=== PATIENT | female | born 1965 | race Caucasian/White ===

== ENCOUNTER 2017-04-27 14:31 | Outpatient (CLI) ==
--- NOTE | 2017-04-27 15:00 | DI ---
EXAM: Three views of the left ankle HISTORY: Pain in left ankle. COMPARISON: None FINDINGS: There is no lytic or blastic lesion of the left ankle. The joint spaces maintained. No d isplaced fracture or dislocation is identified. Soft tissues demonstrate no significant soft tissue swelling. Structures in the hind foot are normal. IMPRESSION: No acute abnormality or displaced fracture of the left ankle.
== END 2017-04-27 14:32 | disposition home or self-care (01) ==
LOC: RAD 14:31
PROVIDERS: ATTEND Nurse Practitioner Family
DX: M25.572 Pain in left ankle and joints of left foot (principal); S99.912A Unspecified injury of left ankle, initial encounter

== ENCOUNTER 2017-05-02 13:04 | Outpatient (CLI) ==
[2017-05-02 13:21] LABS: BASOPHILS # (AUTO) 0.1 K/uL (0-0.2); BASOPHILS % (AUTO) 0.8 % (0.0-3.0); EOSINOPHILS # (AUTO) 0.1 K/ul (0.0-0.7); EOSINOPHILS % (AUTO) 1.9 % (0.0-7.0); HEMATOCRIT 43.5 % (37.0-47.0); HEMOGLOBIN 14.8 g/dl (12.0-16.0); IMMATURE GRANULOCYTE % (AUTO) 0.3 % (0.0-5.0); LYMPHOCYTES # (AUTO) 2.5 K/uL (0.60-3.4); LYMPHOCYTES % (AUTO) 39.6 (10.0-50.0); MEAN CORPUSCULAR HEMOGLOBIN 32.8 pg (27.0-31.0); MEAN CORPUSCULAR VOLUME 96.5 fl (81.0-99.0); MONOCYTES # (AUTO) 0.5 K/uL (0.4-2.0); MONOCYTES % (AUTO) 8.6 (0-10); NEUTROPHILS # (AUTO) 3.1 K/ul (2.0-6.9); NEUTROPHILS % (AUTO) 48.8; PLATELET COUNT 489 10^3/uL (140-440); RED BLOOD COUNT 4.51 10^6/ul (4.20-5.40); WHITE BLOOD COUNT 6.27 K/ul (4.6-10.2)
[2017-05-02 13:23] LABS: BILIRUBIN,URINE 1+ (NEGATIVE); KETONES,URINE Negative (NEGATIVE); LEUKOCYTE ESTERASE ,URINE Negative (NEGATIVE); NITRITE,URINE Negative (NEGATIVE); PROTEIN,URINE Trace (NEGATIVE); URINE, BLOOD Negative (NEGATIVE)
[2017-05-02 13:32] LABS: ADD URINE MICROSCOPIC YES
--- NOTE | 2017-05-02 13:33 | DI ---
EXAM: Pelvis one-view HISTORY: Sacral coccygeal disorders, not elsewhere classified COMPARISON: None FINDINGS: The bones are normal. Sacroiliac joints intact. Sacral arcuate lines intact. Hip joints are normal. No focal soft tissue abnormality. IMPERSSION: Normal examination.
[2017-05-02 13:35] LABS: ALBUMIN 4.1 g/dL (3.4-5.0); ALBUMIN/GLOBULIN RATIO 1.03; ANION GAP 16.1; BILIRUBIN,TOTAL 0.37 mg/dL (0.00-1.20); BUN/CREATININE RATIO 13.33; CALCIUM 9.9 mg/dL (8.2-10.2); CREATININE 0.75 mg/dL (0.60-1.30); POTASSIUM 4.1 mmol/L (3.5-5.10); TOTAL PROTEIN 8.1 g/dL (6.4-8.2)
[2017-05-02 13:37] LABS: BACTERIA,URINE TRACE (NOT PRESENT)
--- NOTE | 2017-05-02 13:43 | CT ---
EXAM: CT left ankle without contrast HISTORY: Initial presentation for left ankle injury COMPARISON: Radiograph 04/27/2017 TECHNIQUE: Multiple axial images of the left ankle were obtained without intravenous contrast. Kerry ges were reformatted in the sagittal and coronal planes. FINDINGS: Bone mineralization is normal. No displaced fracture or dislocation identified. There i s oblique sclerosis within the superior posterior aspect of the calcaneus best seen on sagittal imag e 25. Joint spaces are maintained. No erosive changes are seen. Soft are unremarkable. IMPRESSION: 1. No acute fracture or dislocation. 2. Age indeterminate calcaneal stress fracture.
== END 2017-05-02 13:05 | disposition home or self-care (01) ==
LOC: RAD 13:04
PROVIDERS: ATTEND General Practice
DX: M25.572 Pain in left ankle and joints of left foot (principal); M53.3 Sacrococcygeal disorders, not elsewhere classified; Z79.899 Other long term (current) drug therapy
CPT/HCPCS: 36415; 80053; 81001; 85025

== ENCOUNTER 2017-08-02 15:54 | Outpatient (CLI) ==
--- NOTE | 2017-08-02 16:54 | DI ---
EXAM: Lumbar spine radiographs. HISTORY: Low back pain. COMPARISON: None available. TECHNIQUE: 5 views of the lumbar spine. FINDINGS: The normal curvature and alignment are maintained. Vertebral body heights are normal. Th ere is moderate loss of disc height at L4-5 and L5-S1. No fracture or subluxation identified. Sacra l arcuate lines are intact. Soft tissues are unremarkable. Cholecystectomy clips noted. IMPRESSION: Lower lumbar degenerative disc disease.
== END 2017-08-02 15:55 | disposition home or self-care (01) ==
LOC: RAD 15:54
PROVIDERS: ATTEND General Practice
DX: M54.5 Low back pain (principal)

== ENCOUNTER 2017-08-05 12:03 | Outpatient (CLI) ==
--- NOTE | 2017-08-06 10:35 | MRI ---
EXAM: MRI lumbar spine without IV contrast. DATE: 03 August 2017. HISTORY: Right-sided sciatica. TECHNIQUE: Sagittal and axial T1W and T2W sequences of the lumbar spine along with sagittal IR and c oronal T2W sequences were obtained using 1.10 Alyson magnet. No IV contrast. COMPARISON: LS spine series 02 August 2017. FINDINGS: There are five [id number] lumbar vertebra. Twelfth ribs are small. Minor rightward curvature of the lumbar spine is evident. A 1 mm anterior subluxation of L5 relative to S1 is noted. There are questionable L5 pars defects. No other subluxation, acute fracture, osseous malignancy i s demonstrated. Lumbar vertebrae normal in height. Bone marrow signal is overall normal. T2W/T1W b right, 4.4 mm focus in the T12 body and 8.8 mm focus in the L3 body are likely benign hemangiomas. D isc desiccation and mild disc space narrowing are present at L4-5 and L5-S1. The no sacral fracture or stress reaction is apparent. SI joints are unremarkable. Abundant epidural fat at L5-S1 and in t he sacral canal causes significant narrowing of the thecal sac. Conus medullaris terminates at T12-L 1. Visible spinal cord is normal. No retroperitoneal lymphadenopathy, paraspinal mass, or aortic aneurysm is detected in the paraspinal musculature is symmetric bilaterally. Visible portions of the liver, spleen, adrenal glands, and ki dneys reveal no abnormality. CBD is 8.6 mm diameter. No choledocholithiasis or intraluminal CBD mas s detected. Gallbladder is surgically absent. Segmental analysis: T11-12: Normal. T12-L1: Normal. L1-2: Minimal posterior disc bulge does not cause central stenosis or foraminal stenosis. L2-3: Normal. L3-4: Normal. L4-5: Minimal posterior to left foraminal disc bulge causes triangulation of the canal and minor lef t foraminal narrowing. L5-S1: Minor anterior subluxation of L5, small concentric disc bulge, and mild facet arthropathy cau se moderate right and marked left foraminal stenoses. Abundant epidural fat causes marked narrowing o f the thecal sac. IMPRESSIONS: 1. Lumbar spine questionable bilateral L5 pars defects versus facet disease causing minor L5 subluxa tion. 2. Spinal lipomatosis at L5-S1 and the sacral canal. 3. Triangulation of the canal at L4-5. 4. Benign hemangiomas at T12 and L3 vertebra. 5. L5-S1 moderate/marked foraminal stenoses. 6. The 8.6 mm CBD may be normal S/P cholecystectomy.
== END 2017-08-05 12:04 | disposition home or self-care (01) ==
LOC: RAD 12:03
PROVIDERS: ATTEND General Practice
DX: M54.31 Sciatica, right side (principal)

== ENCOUNTER 2017-10-04 11:00 | Outpatient (RCR) ==
--- NOTE | 2017-09-19 14:55 | RS.OPPTEV2 ---
Date of Note: 09/19/17 Visit #: 1 Date of Evaluation: 09/19/17 Payer Source: Medicaid Treatment Diagnosis: Right low back/SI pain, SI joint Dysfunction History of Condition/Mechanism of Injury:: Patient reports right hip/low back pain since this past , when she was sitting in the floor with her grandkids putting [employer] baskets together. Prior Level of Function.....Patient was independent with: ADL's, Self Care, Caregiving, Ambulation/Mobility, Community Integration/Access Functional Limitations: Sleep, ADL's, Lifting, Sitting, Standing, Bending Current Subjective/complaints:: Patient reports pain into the right low back and buttock. Pain goes into the right thigh and almost to the knee. States right LE feels hot and itchy. Her hips hurt at night. She sleeps on her side and has to change positions frequently. States right low back and buttock pain is pretty well constant. She tries to walk a little to keep everything loose. Standing in one place or sitting causes increased pain. Treatment Side (optional): Right Medical History Surgical History: Cholecystectomy, Hysterectomy, (2) Hx Home Medications: Effexor, Ibuprofen, Cammal Patient's Goals: Her goal is to get relief of right low back and LE pain. Pain Assessment - Pain Description Pain Location: right lower back/buttock Current Pain Intensity: 6/10 Worst Pain Intensity: 9/10 Functional Outcome Measure Oswestry LBP: 62 - G Codes & Severity Modifier G Codes & Modifier: NA Source of G Code score: NA Observation - Observation Posture: Forward Head, Rounded Shoulders, Decreased Lumbar Lordosis Handedness: Left Gait - Gait Pattern Gait Comments: Patient ambulates independently, without a gait deviation. She demonstrates slight flexed forward posture at the hips and decreased stance phase on the right LE. - ROM Lumbar Flexion: Hand reach to patellae Sidebending to Left: Reach to Mid-thigh Sidebending to Right: Reach to Mid-thigh Lumbar Spine ROM Limitations: Soft Tissue Tightness Comments: Demonstrates hypomobility of the lumbar spine with attempts at lumbar flexion. - Strength Comments: Right hip flexion 4-/5, all else of right hip 4/5. All MMT of right hip increases pain at right SI region. Left LE generally 4 to 4+/5. Trunk strength 4/5. - Special Tests MORIAH Test: Positive Left, Positive Right SLR Test: Negative Left, Negative Right Seated Dural Stretch Test: Negative Left, Negative Right SI Joint Compression: Positive Palpation Comments:: Tenderness reported over the right SI joint. Slight tenderness over the left SI joint and sacrum with central pressures. Reports tenderness over bilateral Greater trochanters. Right lumbar paraspinals demonstrates min to moderate increased tone. Sensation - Sensation Comments: Sensation intact to light touch and deep pressure. Additional Comments: Additional Comments: right SLR to 35 degrees in supine. left SLR to 45-50 degrees. Demonstrates equal leg length in supine and long sitting. - Treatment Modality: Ultrasound Parameters/Method Applied: 1.5 w/cm2 continuous X 10 mins to right SI/lumbar region. Patient Position: Left Sidelying Interventions - Exercise/Activities/Manual Therapy Exercises/Activities: Patient instructed in gentle isometric hip flexion and adduction to start at home. Manual Therapy: NA HOME EXERCISE PROGRAM: gentle isometric hip flexion and adduction - Charges Total Direct Minutes: 50 mins Total Treatment Time: 50 mins Procedures billed for this date of service:: VASILE Kramer, Ultrasound Assessment Assessment: Patient presents to therapy with a diagnosis of right SI joint dysfunction, foraminal stenosis of lumbosacral spine. She reports pain in right low back and buttock that is nearly constant. Reports increased pain into the right LE with prolonged standing and sitting. Lumbar AROM is guarded and limited by pain. Reports sleep being disrupted by hip pain. She reports tenderness over the right SI joint and with mobilization of the sacrum. Demonstrates positive MORIAH's on the right and left. Right hamstring is tighter than the left, with right hip flexor weakness present. She demonstrates potential to benefit from modalities, muscle energy techniques, and pelvic stability to decrease her symptoms. Patient Education: Education of diagnosis, Body/Joint mechanics, Home Exercise Program, Activity Modification, Education of Plan of Care Rehab Potential: Good Short Term Goals Goal #1: Pt compliant and independent with HEP. Goal to be met by: 10/03/17 Goal #2: Right hip flexion 4+/5. Goal to be met by: 10/03/17 Goal #3: Right SI joint tenderness decreased to minimal. Goal to be met by: 10/03/17 Goal #4: Bilateral SLR to 45-50 degrees. Goal to be met by: 10/03/17 Broom Man Goals Goal #1: Pt knows HEP and to continue ex's to maintain functional level at D/C. Goal to be met by: 10/24/17 Goal #2: Pt able to tolerate prolonged standing and sitting w/ min. right LE pain. Goal to be met by: 10/24/17 Goal #3: Score on Oswestry LBP improved to 40. Goal to be met by: 10/24/17 Goal #4: Pt able to sleep with minimal interruption from right low back/SI pain. Goal to be met by: 10/24/17 Plan - Treatment to be Provided Procedures: Therapeutic Exercises, Therapeutic Activity, Manual Therapy, Patient Education Modalities: Electrical Stimulation, Ultrasound/Phonophoresis, Cryotherapy, Hot Packs - Treatment Plan Frequency: 3 X week Duration: 4 weeks ORDER # VISITS AND/OR THROUGH DATE: 10/24/17 - Treatment Code (1) Low back pain Code(s): M54.5 - LOW BACK PAIN Qualifiers: Chronicity: chronic Back pain laterality: right Sciatica presence: unspecified whether sciatica present Qualified Code(s): M54.5 - Low back pain ; G89.29 - Other chronic pain; G89.29 - Other chronic pain (2) Inflammation of right sacroiliac joint Code(s): M46.1 - SACROILIITIS, NOT ELSEWHERE CLASSIFIED Comments: M46.1 (3) Sacroiliac joint dysfunction of right side Code(s): M53.3 - SACROCOCCYGEAL DISORDERS, NOT ELSEWHERE CLASSIFIED Comments: M53.3 (4) Foraminal stenosis of lumbosacral region Code(s): M99.83 - OTHER BIOMECHANICAL LESIONS OF LUMBAR REGION Comments: M99.83
--- NOTE | 2017-09-21 11:44 | RS.OPPTDN ---
Subjective Date of Note: 09/21/17 Visit #: 2 Date of Evaluation: 09/19/17 Payer Source: Medicaid Treatment Diagnosis: Right low back/SI pain, SI joint Dysfunction Current Subjective/complaints:: Patient reports pain in the right S-I joint was aggravated after first US treatment. She also reports disomfort at the left S-I since starting exercise. Pain Assessment - Pain Description Pain Location: right lower back/buttock Current Pain Intensity: 4-5/10 - Treatment Modality: Ultrasound Parameters/Method Applied: [id number] at 1.5w/cm2 to the bilateral S-I joint and lower lumbar paraspinals with focus on the right side prior to EX. Patient Position: Left Sidelying - Heat/Cryotherapy Treatment: Hot Pack ([id number] to the LB and S-I region prior to US and EX. Patient in left side-lying. ) Interventions - Exercise/Activities/Manual Therapy Exercises/Activities: Gentle assisted stretching of bilateral hamstrings, piriformis, and SKTC. Isometric hip flexion and adduction. Attempted bridging. Discussion of body mechanics and safety. Patient given copy of new exercises. Total minutes of Exercise: 20mins Manual Therapy: NA HOME EXERCISE PROGRAM: gentle isometric hip flexion and adduction. Stretching of hamstrings and piriformis, bilaterally. Bridging. - Charges Total Direct Minutes: 30mins Total Treatment Time: 50mins Procedures billed for this date of service:: HP, US, EX Assessment: Patient able to advance exercise today. She appears motivated to progress. Patient Education: Education of diagnosis, Body/Joint mechanics, Home Exercise Program, Home Safety, Activity Modification Patient demonstrates compliance with HEP?: Yes Short Term Goals Goal #1: Pt compliant and independent with HEP. Goal to be met by: 10/03/17 Progress towards Goal:: Progressing Goal #2: Right hip flexion 4+/5. Goal to be met by: 10/03/17 Goal #3: Right SI joint tenderness decreased to minimal. Goal to be met by: 10/03/17 Goal #4: Bilateral SLR to 45-50 degrees. Goal to be met by: 10/03/17 Mcc Goals Goal #1: Pt knows HEP and to continue ex's to maintain functional level at D/C. Goal to be met by: 10/24/17 Goal #2: Pt able to tolerate prolonged standing and sitting w/ min. right LE pain. Goal to be met by: 10/24/17 Goal #3: Score on Oswestry LBP improved to 40. Goal to be met by: 10/24/17 Goal #4: Pt able to sleep with minimal interruption from right low back/SI pain. Goal to be met by: 10/24/17 Plan PLAN OF CARE EXPIRES ON:: 10/24/17 ORDER # VISITS AND/OR THROUGH DATE: 10/24/17 PLAN: Continue modalities and progress exercise to reduce pain and increase patients functional activity level.
--- NOTE | 2017-09-26 13:17 | RS.CXNS ---
Date of scheduled appointment: 09/26/17 Type: Cancel (Patient calls to cancel appointment today. States she is sick with a fever but will attend tomorrow.)
--- NOTE | 2017-09-27 13:47 | RS.OPPTDN ---
Subjective Date of Note: 09/27/17 Visit #: 3 Date of Evaluation: 09/19/17 Payer Source: Medicaid Treatment Diagnosis: Right low back/SI pain, SI joint Dysfunction Current Subjective/complaints:: Patient reports feeling bad today due to still being sick. She reports she is working on basic HEP. Pain Assessment - Pain Description Pain Location: LB and right S-I Current Pain Intensity: 2-3/10 - Treatment Modality: Ultrasound Parameters/Method Applied: [id number] at 1.5w/cm2 to the right lower lumbar and S- I joint areas. Patient Position: Left Sidelying - Heat/Cryotherapy Treatment: Hot Pack ([id number] to the LB and right hip prior to US and EX. Patient in left side-lying. ) Interventions - Exercise/Activities/Manual Therapy Exercises/Activities: Gentle assisted stretching of bilateral hamstrings, piriformis, and SKTC. Began limited lower trunk rotation. Isometric hip flexion and adduction. Discussion of body mechanics and safety with standing activities while cooking for the Holidays. Total minutes of Exercise: 15mins Manual Therapy: NA HOME EXERCISE PROGRAM: gentle isometric hip flexion and adduction. Stretching of hamstrings and piriformis, bilaterally. Bridging. - Charges Total Direct Minutes: 25mins Total Treatment Time: 45mins Procedures billed for this date of service:: HP, US, EX Assessment: Patient will need to progress trunk stability exerrcise to attempt to reduce pain and increase function. Patient Education: Body/Joint mechanics, Home Exercise Program, Home Safety, Activity Modification Patient demonstrates compliance with HEP?: Yes Short Term Goals Goal #1: Pt compliant and independent with HEP. Goal to be met by: 10/03/17 Progress towards Goal:: Progressing Goal #2: Right hip flexion 4+/5. Goal to be met by: 10/03/17 Progress towards Goal:: Progressing Goal #3: Right SI joint tenderness decreased to minimal. Goal to be met by: 10/03/17 Goal #4: Bilateral SLR to 45-50 degrees. Goal to be met by: 10/03/17 Dental Billing Specialist Goals Goal #1: Pt knows HEP and to continue ex's to maintain functional level at D/C. Goal to be met by: 10/24/17 Goal #2: Pt able to tolerate prolonged standing and sitting w/ min. right LE pain. Goal to be met by: 10/24/17 Goal #3: Score on Oswestry LBP improved to 40. Goal to be met by: 10/24/17 Goal #4: Pt able to sleep with minimal interruption from right low back/SI pain. Goal to be met by: 10/24/17 Plan PLAN OF CARE EXPIRES ON:: 10/24/17 ORDER # VISITS AND/OR THROUGH DATE: 10/24/17 PLAN: Continue modalities and progress exercise to reduce pain and increase patients functional activity level.
--- NOTE | 2017-09-28 11:48 | RS.OPPTDN ---
Subjective Date of Note: 09/28/17 Visit #: 4 Date of Evaluation: 09/19/17 Payer Source: Medicaid Treatment Diagnosis: Right low back/SI pain, SI joint Dysfunction Current Subjective/complaints:: Patient reports pain is slightly better, but aggravated this morning due to standing and cooking for holidays. Pain Assessment - Pain Description Pain Location: lowback and right S-I Current Pain Intensity: 5-6/10 - Treatment Modality: US with ES (Comb.) Parameters/Method Applied: [id number] with US at 1.5w/cm2 and Estim to 8p.v. to the bilateral lower lumbar paraspinals and right S-I joint area prior to EX. Patient Position: Left Sidelying - Heat/Cryotherapy Treatment: Hot Pack ([id number] to the lowback and hips prior to USCOM and EX. Patient in left side-lying. ) Interventions - Exercise/Activities/Manual Therapy Exercises/Activities: Gentle assisted stretching of bilateral hamstrings, piriformis, and SKTC. Limited lower trunk rotation. Isometric hip flexion and adduction. No new additions to HEP. Patient to increase isometrics. Total minutes of Exercise: 14mins Manual Therapy: NA HOME EXERCISE PROGRAM: gentle isometric hip flexion and adduction. Stretching of hamstrings and piriformis, bilaterally. Bridging. - Charges Total Direct Minutes: 26mins Total Treatment Time: 46mins Procedures billed for this date of service:: HP, USCOM, EX Assessment: Patient attempting to progress HEP and daily activities at home. She will need to increase isometrics and more trunk stability when tolerable. Patient Education: Home Exercise Program, Home Safety, Activity Modification Patient demonstrates compliance with HEP?: Yes Short Term Goals Goal #1: Pt compliant and independent with HEP. Goal to be met by: 10/03/17 Progress towards Goal:: Progressing Goal #2: Right hip flexion 4+/5. Goal to be met by: 10/03/17 Progress towards Goal:: Progressing Goal #3: Right SI joint tenderness decreased to minimal. Goal to be met by: 10/03/17 Goal #4: Bilateral SLR to 45-50 degrees. Goal to be met by: 10/03/17 [employer] Worker Goals Goal #1: Pt knows HEP and to continue ex's to maintain functional level at D/C. Goal to be met by: 12/18/17 Progress towards goal: Progressing Goal #2: Pt able to tolerate prolonged standing and sitting w/ min. right LE pain. Goal to be met by: 10/24/17 Goal #3: Score on Oswestry LBP improved to 40. Goal to be met by: 10/24/17 Goal #4: Pt able to sleep with minimal interruption from right low back/SI pain. Goal to be met by: 10/24/17 Plan PLAN OF CARE EXPIRES ON:: 10/24/17 ORDER # VISITS AND/OR THROUGH DATE: 10/24/17 PLAN: Continue modalities and progress exercise to reduce pain and increase functional activity level.
--- NOTE | 2017-10-04 13:23 | RS.OPPTDN ---
Subjective Date of Note: 10/04/17 Visit #: 5 Date of Evaluation: 09/19/17 Payer Source: Medicaid Treatment Diagnosis: Right low back/SI pain, SI joint Dysfunction Current Subjective/complaints:: Patient reports her appointment at [facility] for injections has been changed. She reports pain seems aggravated today. She reports she is careful with her daily activities and is working on HEP as instructed. Pain Assessment - Pain Description Current Pain Intensity: mod+ Other Comments regarding Pain:: Reports an ache across the lower back. - Treatment Modality: US with ES (Comb.) Parameters/Method Applied: [id number] at 1.5w/cm2 with Estim to 7p.v. to the bilateral lower lumbar paraspinals prior to EX. Patient Position: Left Sidelying - Heat/Cryotherapy Treatment: Hot Pack ([id number] to the lowback prior to USCOM and EX. Patient in left side-lying. ) Interventions - Exercise/Activities/Manual Therapy Exercises/Activities: Gentle assisted stretching of bilateral hamstrings, piriformis, SKTC, and limited lower trunk rotation. Isometric hip flexion and adduction. Attempted bridging with patient increasing hold time. Reviewed safety with lifting and general body mechanics at home. Total minutes of Exercise: 14mins Manual Therapy: NA HOME EXERCISE PROGRAM: gentle isometric hip flexion and adduction. Stretching of hamstrings and piriformis, bilaterally. Bridging. - Charges Total Direct Minutes: 26mins Total Treatment Time: 50mins Procedures billed for this date of service:: HP, USCOM, EX Assessment: Patient reporting a reduction in pain following modalities and exercise. She reports improvement in mobility since starting therapy. She is cautious with body mechanics, as instructed, and appears to be working on HEP. Patient Education: Body/Joint mechanics, Home Exercise Program, Home Safety, Activity Modification Comments: Patient education of dx, body mechanics, and safety with daily activities. Patient demonstrates compliance with HEP?: Yes Short Term Goals Goal #1: Pt compliant and independent with HEP. Goal to be met by: 10/03/17 Progress towards Goal:: Met Goal #2: Right hip flexion 4+/5. Goal to be met by: 10/03/17 Progress towards Goal:: Progressing Goal #3: Right SI joint tenderness decreased to minimal. Goal to be met by: 10/03/17 Progress towards Goal:: Progressing Goal #4: Bilateral SLR to 45-50 degrees. Goal to be met by: 10/03/17 Progress towards Goal:: Not Met Retirement Goals Goal #1: Pt knows HEP and to continue ex's to maintain functional level at D/C. Goal to be met by: 10/24/17 Progress towards goal: Progressing Goal #2: Pt able to tolerate prolonged standing and sitting w/ min. right LE pain. Goal to be met by: 10/24/17 Progress towards goal: Progressing Goal #3: Score on Oswestry LBP improved to 40. Goal to be met by: 10/24/17 Goal #4: Pt able to sleep with minimal interruption from right low back/SI pain. Goal to be met by: 10/24/17 Progress towards goal: Progressing Plan PLAN OF CARE EXPIRES ON:: 10/24/17 ORDER # VISITS AND/OR THROUGH DATE: 10/24/17 PLAN: Continue modalities and progressive trunk stability exercise to continue progression of functional mobility and activity level.
== END 2017-10-06 ==
PROVIDERS: ATTEND Physician Assistant Surgical
DX: M53.3 Sacrococcygeal disorders, not elsewhere classified (principal); M99.83 Other biomechanical lesions of lumbar region

== ENCOUNTER 2017-11-25 16:31 | Outpatient (CLI) | END 2017-11-25 16:32 | disposition home or self-care (01) | LOC: LAB 16:31 | PROVIDERS: ATTEND General Practice | DX: F11.90 Opioid use, unspecified, uncomplicated (principal) | CPT/HCPCS: 80306 ==

== ENCOUNTER 2018-07-28 19:04 | Outpatient (CLI) | END 2018-07-28 19:20 | disposition short-term general hospital (02) | LOC: AMBL 19:04 | PROVIDERS: ATTEND Family Medicine | DX: R41.82 Altered mental status, unspecified (principal); R53.83 Other fatigue; R00.0 Tachycardia, unspecified ==